=== PATIENT | male | born 1960 | race Caucasian/White ===

== ENCOUNTER 2019-04-20 06:51 | Emergency (ER) | payer MEDICAID ==
[~2019-04-20] VITALS: Ht 165.1 cm; Wt 93.4 kg
[2019-04-20 06:56] VITALS: Ht 165.1 cm; Wt 93.4 kg
[2019-04-20 07:46] LABS: CALCIUM 10.5 mg/dL (8.5-10.1); CARBON DIOXIDE 27.9 mmol/L (21-32); CHLORIDE SERUM 103 mmol/L (98-107); CREATININE SERUM 0.8 mg/dL (0.7-1.3); GFR1 > 60 mL/min; GLUCOSE SERUM 121 mg/dL (74-106); POTASSIUM SERUM 5.2 mmol/L (3.5-5.1); SODIUM SERUM 139 mmol/L (136-145)
[2019-04-20 07:51] LABS: ALBUMIN 3.8 g/dL (3.4-5.0); ALKALINE PHOSPHATASE 117 U/L (46-116); ALT/SGPT 50 U/L (16-63); AST/SGOT 19 U/L (15-37); BILIRUBIN TOTAL 0.46 mg/dL (0.20-1.00); LIPASE 113 IU/L (73-393); TOTAL PROTEIN, SERUM 7.9 g/dL (6.4-8.2)
[2019-04-20 07:56] LABS: BASOPHIL % 0.5 % (0-2); PLATELET COUNT 258 x10^3mcL (130-400); RED CELL DISTRIBUTION WIDTH 11.9 % (11.5-14.5)
[2019-04-20 09:18] VITALS: BP 111/76
== END 2019-04-20 09:18 | disposition home or self-care (01) ==
LOC: ED 06:51
PROVIDERS: Emergency Medicine
DX: K59.00 Constipation, unspecified (principal)
CPT/HCPCS: 36415

== ENCOUNTER 2019-05-03 18:42 | Emergency (ER) | payer MEDICAID ==
[~2019-05-03] VITALS: Ht 167.6 cm; Wt 91.2 kg
[2019-05-03 18:56] VITALS: Ht 167.6 cm; Wt 91.2 kg
[2019-05-03 20:43] VITALS: BP 139/83
== END 2019-05-03 20:43 | disposition home or self-care (01) ==
LOC: ED 18:42
DX: S61.411A Laceration without foreign body of right hand, initial encounter (principal); I10 Essential (primary) hypertension; W45.8XXA Other foreign body or object entering through skin, initial encounter; Y93.89 Activity, other specified; Y92.89 Other specified places as the place of occurrence of the external cause; Y99.8 Other external cause status
CPT/HCPCS: J2001